=== PATIENT | male | born 2000 | race Caucasian/White ===

== ENCOUNTER 2021-10-21 08:05 | Outpatient (CLI) | payer OTHER ==
--- NOTE | 2021-10-21 10:18 | MRI Report ---
PROCEDURE: Wrist LT W/O INDICATIONS: PAIN IN WRISTS TECHNIQUE: Noncontrast coronal proton density fast spin echo and T2 fast spin echo with fat saturation; coronal 3-D gradient echo, axial T1 spin echo and T2 fast spin echo with fat saturation, sagittal T1 spin ech o through the wrist. COMPARISON: None. FINDINGS: Image quality: Excellent. Bones and cartilage: The carpal bones are normally aligned. No bone marrow contusions or fractures. No evidence for avascular necrosis. No focal osseous erosion or osteomyelitis identified. Small rad iocarpal effusion. Carpal ligaments: The scapholunate and lunotriquetral ligaments appear intact. In the absence of in tra-articular contrast, the extrinsic carpal ligaments are not well identified. On sagittal images, the pisohamate ligament appears intact. Triangular fibrocartilage complex: A small amount of intermediate signal seen in the central triangul ar fibrocartilage disc without a discrete tear identified, which is nonspecific. Tendons and soft tissues: A skin marker is seen at the dorsal aspect of the wrist. The adjacent subc utaneous tissues appear normal. Intermediate signal intensity within the extensor pollicis longus ten don, consistent with tendinosis. There is mild extensor carpi ulnaris tendinosis. The remaining exten sor tendon compartments demonstrate normal morphology, without pathologic tendon sheath fluid. The ca rpal tunnel structures appear normal, including the median nerve. The ulnar nerve appears normal wit hin Guyon's canal. A 7 x 4 x 3 mm ganglion cyst is seen at the volar radial aspect of the wrist. Tin y 2 to 3 mm ganglion cysts are seen on the dorsal aspect of the scapholunate articulation. 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 2.Small radiocarpal joint effusion. 3.Small ganglion cyst at the volar radial aspect of the wrist measuring 7 mm. Additional 2 to 3 mm ga nglion cysts dorsal to the scapholunate articulation. 4.No acute trabecular bone injury. No osseous erosion. No significant ligament injury is seen. Reviewed by: Hugo Garcia MD on 10/21/2021 10:17 AM [facility] Approved by: Hugo Garcia MD on 10/21/2021 10:17 AM PST Station ID: [id number]
--- NOTE | 2021-10-21 10:28 | MRI Report ---
PROCEDURE: Wrist RT W/O INDICATIONS: PAIN IN WRISTS TECHNIQUE: Noncontrast coronal proton density fast spin echo and T2 fast spin echo with fat saturation; coronal 3-D gradient echo, axial T1 spin echo and T2 fast spin echo with fat saturation, sagittal T1 spin ech o through the wrist. COMPARISON: None. FINDINGS: Image quality: Excellent. Bones and cartilage: The carpal bones are normally aligned. Mild ill-defined T2 hyperintense signal in the volar aspect of the capitate may be degenerative or related to a vascular channel, although mi ld trabecular bone injury or an early erosion are not excluded. No evidence for avascular necrosis. A small nonedematous ossification is seen adjacent to the ulnar styloid tip, most likely secondary to remote prior trauma. Carpal ligaments: The scapholunate and lunotriquetral ligaments appear intact. In the absence of in tra-articular contrast, the extrinsic carpal ligaments are not well identified. On sagittal images, the pisohamate ligament appears intact. 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 The ulnar foveal attachment is intact. The triangular fibrocartilage is otherwise intact. No full-thickness te ar or significant distal radioulnar joint effusion. Tendons and soft tissues: A skin marker is seen dorsal to the wrist. Intermediate signal intensity w ithin the extensor pollicis longus tendon is consistent with tendinosis. There is mild extensor carpi ulnaris tendinosis. The remaining extensor tendon compartments demonstrate normal morphology, withou t pathologic tendon sheath fluid. The carpal tunnel structures appear normal, including the median n erve. The ulnar nerve appears normal within Guyon's canal. A lobular ganglion cyst seen dorsal to t he scapholunate interval measuring 8 x 6 x 1 mm. IMPRESSION: 1.Mild extensor pollicis longus and extensor carpi ulnaris tendinosis. 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 3.Multiple nonspecific T2 hyperintense signal at the lateral aspect of the distal capitate may be rel ated to interosseous vascularity, tiffany degenerative changes, or less likely acute trabecular bone inj ury or a developing erosion. 4.Small ganglion cyst dorsal to the scapholunate interval measuring 8 x 6 x 1 mm. Reviewed by: Hugo Garcia MD on 10/21/2021 10:26 AM PST Approved by: Hugo Garcia MD on 10/21/2021 10:26 AM [facility] Station ID: [id number]
== END 2021-10-21 08:06 | disposition home or self-care (01) ==
LOC: DI 08:05
PROVIDERS: ATTEND Family Medicine
DX: M25.432 Effusion, left wrist (principal); M67.432 Ganglion, left wrist; M67.932 Unspecified disorder of synovium and tendon, left forearm; S52.611 Displaced fracture of right ulna styloid process; M67.431 Ganglion, right wrist; M67.931 Unspecified disorder of synovium and tendon, right forearm

== ENCOUNTER 2022-08-01 11:53 | Emergency (ER) | payer OTHER ==
[2022-08-01 12:44] VITALS: BP 167/100
--- NOTE | 2022-08-01 15:23 | ED Physician Documentation ---
PD HPI SKIN - Stated complaint Stated Complaint: L FINGER LAC - Chief complaint Chief Complaint: Laceration - History obtained from History obtained from: Patient - Additional information Additional information: This is a generally healthy 21-year-old male who Accidentally cut his left index finger on a knife last night. He states he did not take it was that bad so he just washed it and wrapped in tape this morning it seemed like it looked a little worse so he decided come in to get checked. He denies any change in sensation, no difficulty with range of motion, no swelling. He believes he is up-to-date with his tetanus, last was in 2019. Review of Systems Ten Systems: 10 systems reviewed and negative (Except as noted in HPI) PD PAST MEDICAL HISTORY - Past Medical History Past Medical History: No - Present Medications Home Medications: Ambulatory Orders Medication Instructions Recorded Confirmed Erythromycin Ophth Oint (3.5) 3.5 applic EACHEYE Q6HR #3.5 ml 05/01/22 [Ilotycin Ophth Oint (3.5)] - Allergies Allergies/Adverse Reactions: Allergies Allergy/AdvReac Type Severity Reaction Status Date / Time No Known Drug Allergies Allergy Verified 08/01/22 12:44 PD ED PE NORMAL - Vitals Vital signs reviewed: Yes - General General: Alert and oriented X 3, No acute distress, Well developed/nourished - Cardiac Cardiac: RRR, No murmur - Respiratory Respiratory: No respiratory distress, Clear bilaterally - Derm Derm: Normal color, Warm and dry, Other (There is a U-shaped laceration distal left index finger coming up the dorsum of the finger around the nail and down the volar surface.) - Extremities Extremities: No deformity, Normal ROM s pain - Neuro Neuro: Alert and oriented X 3 Eye Opening: Spontaneous Motor: Obeys Commands Verbal: Oriented GCS Score: 15 Results - Vitals Vitals: Vital Signs - 24 hr 08/01/22 12:41 Temperature 36.0 C L Heart Rate 73 Respiratory 18 Rate Blood Pressure 167/100 H O2 Saturation 98 Oxygen O2 Source Room air PD MEDICAL DECISION MAKING - ED course Complexity details: d/w patient ED course: Patient presented with a laceration of the left index finger. Wound did not require sutures but was quite dirty and I recommend we do a digital block to clean the wound thoroughly and patient was agreeable. Finger was digitally blocked with 4 mils of 1% plain lidocaine and then cleaned thoroughly with Hibiclens and water and then was tacked closed with Dermabond. A nonstick gauze dressing was applied. Patient is advised on home wound care instructions as well as return precautions. Departure - Departure Disposition: 01 Home, Self Care Clinical Impression: Laceration Finger laceration Qualifiers: Encounter type: initial encounter Finger: index finger Damage to nail status: without damage Foreign body presence: without foreign body Laterality: left Qualified Code(s): S61.211A - Laceration without foreign body of left index finger without damage to nail, initial encounter Condition: Good Instructions: ED Laceration Hand Comments: You presented with a laceration of the left index finger. It did abut the nail but did not require sutures. We cleaned thoroughly with soap and water and applied a skin glue which should remain on for the next few days while it heals. You may wash your hands but do not soak them or go swimming until wound is healed. Return if there are any signs of infection.
[2022-08-01] MEDS: LIDOCAINE 1% 2 ML VIAL SUBQ STA (15:28)
== END 2022-08-01 15:42 | disposition home or self-care (01) ==
LOC: ED 11:53
DX: S61.211A Laceration without foreign body of left index finger without damage to nail, initial encounter (principal); W26.0XXA Contact with knife, initial encounter
CPT/HCPCS: 96372; 99282; 99283